=== PATIENT | male | born 1940 | race Caucasian/White ===

== ENCOUNTER → 2016-06-16 | Outpatient (CLI) | payer OTHER, BC ==
[~2016-06-16] VITALS: Ht 167.6 cm; Wt 59.0 kg
[~2016-06-16] MED LIST: ALEVE220 MG PO; ALPHA LIPOIC A300 MG PO; ARNICA120 ML TP; ATIVAN0.5 MG PO; BAYER BACK & B1 EACH PO; CURCUMIN1 GM MC; FISH OIL 1,001000 M2 PO; FOLIC ACID 40400 MCG PO; HYDROCODONE-AP1 EAC6 PO; IBUPROFEN200 M1 PO; LEVOTHYROXIN0.025 MG PO; METOPROLOL SUCC50 MG PO; NORVASC5 MG PO; PREDNISONE 20 M20 MG PO; PRILOSEC 10MG C10 MG PO; SERTRALINE HCL25 M1 PO; VITAMIN B-12500 MCG PO; VITAMIN D1000 UNIT PO; VOLTAREN GEL 1100 G2 TOP
--- NOTE | ~2016-06-16 | CATHLAB ---
[facility] [place] [address] INVASIVE PROCEDURE REPORT Name: BALJIT CASILLAS MARIE Room #: REG CL [facility]#: [id number] Admission: 06/16/16 Attend Phys: Geo Bunn MD Discharge: Date of : 36 Date of Service: 06/16/16 0911 Report #: [id number] THIS REPORT FOR: //name// CC: Geo Oglesby DATE OF SERVICE: 06/16/2016 CARDIAC CATHETERIZATION REPORT INDICATION: Unstable angina. Full risks, benefits and alternatives of cardiac catheterization were explained to the patient. All questions were answered. Informed consent was obtained. A Barbeau test was performed on the right radial artery. The right wrist area was prepped and draped in a sterile manner. Lidocaine was given subcutaneously. A 5-Ugandan sheath was inserted into the right radial artery via modified Seldinger technique. Nitroglycerin and verapamil was given through the sheath. 4000 units of heparin was given through a peripheral IV. CORONARY ANATOMY: The left main artery is a large caliber vessel, with no flow-limiting lesions. The LAD is a moderate-sized caliber vessel, tortuous as it travels down the anterior wall and wraps around the apex. There are no flow-limiting lesions in the LAD. There is some mild plaquing in the proximal segment of the LAD, less than 20%. The first diagonal artery has a mild blockage in the proximal segment, 20%. There is a ramus artery present, of moderate-size caliber. There are no flow-limiting lesions in the ramus artery. The left circumflex artery gives off one obtuse marginal artery. There is only mild plaquing in the proximal segment of the left circumflex artery, less than 20%. The RCA is a codominant vessel supplying a PDA. There is only mild plaquing in the mid segment of the RCA, less than 20%. A left ventriculogram was performed, revealing normal LV systolic function, ejection fraction of 60%. The LVEDP is 17 mmHg. There is no gradient across the outflow tract. At the end of the procedure, the sheath was removed and a Vasc band was applied for hemostasis. [facility] [address] [place] [address] INVASIVE PROCEDURE REPORT Name: BALJIT CASILLAS MARIE Room #: REG CL [facility]#: [id number] Admission: 06/16/16 Attend Phys: Geo Bunn MD Discharge: Date of : 36 Date of Service: 06/16/16910 Report #: [id number] IMPRESSION: 1. Mild, nonobstructive coronary artery disease. 2. Normal left ventricular systolic function. 3. Recommend medical therapy. <ELECTRONICALLY SIGNED> By: Geo Bunn MD 06/17/16 0756 0943 Geo Bunn MD /juan m
--- NOTE | ~2016-06-16 | EKG ---
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 06/16/1612 0731 0 Jason Richards MD, FACC /EPI
[2016-06-16 07:24] VITALS: BP 171/70
[2016-06-16 07:27] LABS: HEMATOCRIT 46.4 % (42.0-52.0); HEMOGLOBIN 15.6 gm/dL (14.0-18.0); MCHC 33.6 % (28.0-37.0); MCV 92.4 fL (80.0-100.0); RBC 5.02 mil/uL (4.50-6.00); RDW 13.3 % (10.5-14.5); WBC 11.2 thou/uL (4.0-11.0)
[2016-06-16 07:39] LABS: ANION GAP 7 mmol/L (7-16); BUN 20 mg/dL (7-18); CALCIUM 8.5 mg/dL (8.5-10.1); CHLORIDE 102 mmol/L (98-107); CO2 31 mmol/L (21-32); GLUCOSE 102 mg/dL (70-99); POTASSIUM 3.5 mmol/L (3.5-5.1); SODIUM 140 mmol/L (136-145)
[2016-06-16 07:44] LABS: CHOLESTEROL 254 mg/dL (<200); HDL CHOLESTEROL 110 mg/dL (>40); LDL CHOLESTEROL 124 mg/dL (<100); TC:HDL 2.3 Ratio (Not establshd); TRIGLYCERIDE 101 mg/dL (<150); VLDL 20 mg/dL (<40)
== END | disposition home or self-care (01) ==
LOC: CATH 06:54
PROVIDERS: Internal Medicine Cardiovascular Disease
DX: I25.10 Atherosclerotic heart disease of native coronary artery without angina pectoris (principal)

== ENCOUNTER → 2016-09-02 | Outpatient (CLI) | payer OTHER, BC | LOC: CAT 09:00 | DX: G44.319 Acute post-traumatic headache, not intractable (principal) ==

== ENCOUNTER → 2019-04-14 | Outpatient (CLI) | payer OTHER, BC ==
[~2019-04-14] VITALS: Ht 170.2 cm; Wt 56.7 kg
[~2019-04-14] MED LIST changes: +ADVIL200 M1 PO; +ALEVE PM CAPLE1 EACH PO; +ASPIRIN325 PO; +COREG6.25 MG PO; +LORAZEPAM 1 MG T1 MG PO; +NORVASC5 M1 PO; +ZESTRIL40 MG PO; +ZOLOFT50 M1 PO
[2019-04-14 07:13] LABS: HEMATOCRIT 47.4 % (42.0-52.0); HEMOGLOBIN 15.8 gm/dL (14.0-18.0); MCH 32.1 pg (26.0-34.0); MCHC 33.3 g/dL (28.0-37.0); MCV 96.5 fL (80.0-100.0); PLATELET COUNT 301 thou/uL (150-400); RBC 4.91 mil/uL (4.50-6.00); RDW 13.2 % (10.5-14.5); WBC 7.5 thou/uL (4.0-11.0)
[2019-04-14 07:18] VITALS: BP 160/70
[2019-04-14 07:22] LABS: CALCIUM 9.5 mg/dL (8.5-10.1); CREATININE 1.3 mg/dL (0.7-1.3); POTASSIUM 3.7 mmol/L (3.5-5.1)
[2019-04-14 07:25] LABS: APTT 25.5 Seconds (24.5-32.8); PROTIME 9.9 Seconds (9.3-11.4)
[2019-04-14 07:28] LABS: TOTAL BILIRUBIN 0.5 mg/dL (<0.1-1.0); TOTAL PROTEIN 7.3 g/dL (6.4-8.2)
[2019-04-14 08:14] LABS: ABSOLUTE NEUTROPHILS 4.6 thou/uL (1.4-8.2); ANISOCYTOSIS 1+
--- NOTE | 2019-04-18 14:00 | P ---
[facility] [place] [address] PROCEDURE REPORT Name: CASILLASBALJIT MARIE Room #: REG OANH Nikole#: [id number] Admission: 04/14/19 Attend Phys: Suresh Inman MD Discharge: Date of : 36 Report #: [id number] THIS REPORT FOR: //name// CC: Suresh Oglesby EP STUDY PREOPERATIVE DIAGNOSES: 1. Possible syncope. 2. Vopbv-Loiyccclo-Wwmxz, EKG pattern. POSTOPERATIVE DIAGNOSES: 1. Possible syncope. 2. Jgjpw-Hmqrgwenf-Ogjqa, EKG pattern. HISTORY OF PRESENT ILLNESS: The patient is an 78-year-old male who recently had a fall at home while using the bathroom in the middle of the night. It is unclear if he had a syncopal episode. He had a normal echo and stress test. He has evidence of manifest preexcitation on an EKG. He wore court recording monitor, which showed some short runs of SVT, lasting a few seconds. He had some short runs of wide complex tachycardia, which appears to be possibly SVT with possibly atrial tachycardia with preexcitation. He is here for diagnostic EP study and possible ablation. ANESTHESIA: The patient underwent MAC anesthesia with no anesthesia related complications. DESCRIPTION OF PROCEDURE: The patient underwent informed consent. We discussed the details of the procedure including the risks, which include but not limited to bleeding, vascular damage, cardiac perforation, stroke, ND as well as damage to tanana conduction system requiring permanent pacemaker. The patient was brought to the EP laboratory in a fasting and sedated state and prepped and draped in a sterile fashion. I obtained access to the femoral veins x 4. In the right femoral vein, I placed an 8-inch 6-Greenlandic short sheath and in the left femoral vein, I placed a 7-inch 6-Greenlandic short sheath. Next, I attempted to advance my decapolar catheter into the heart and there was a lot of tortuosity going from the left groin. I therefore obtained access to the right femoral vein third time and placed a short sheath here. This allowed me to advance the decapolar catheter more easily. I was able to get the decapolar catheter deep into the coronary sinus and then I placed 3 quadripolar catheters at the HRA, His and RV positions. Next, the basic EP study was performed. At baseline, the patient was in sinus rhythm, sinus cycle length of 1080 milliseconds, WI interval 120 milliseconds, QRS duration 158 milliseconds with evidence of preexcitation and a preexisting right bundle branch block. His QT interval was 470 milliseconds, AH interval was 96 milliseconds, and his HV [facility] [address] [place] [address] PROCEDURE REPORT Name: BALJIT CAISLLAS Room #: [id number] Admission: 04/14/19 Attend Phys: Suresh Inman MD Discharge: Date of : 36 Report #: [id number] interval was negative 26 milliseconds due to the manifest preexcitation. When I paced the atrium, his preexcitation showed a positive delta wave in V1 and positive concordance in the precordial leads. His delta wave was negative in leads II, III and aVF and positive in leads I. Again, he does have that right bundle branch block morphology at baseline. This morphology was suggestive of a left-sided pathway, likely posterior in nature. With atrial pacing, the accessory pathway would block antegrade at 660 milliseconds. This resulted in normalization of the HV interval at 45 milliseconds and a persistence of that right bundle branch block and narrowing of the QRS complex. Next, single atrial extrastimuli were delivered and accessory pathway effective refractory period was 620 milliseconds at a [address] cycle length. Next, ventricular pacing was performed and VA block was noted at 560 milliseconds. VA ERP was noted at 460 milliseconds at [address] cycle length. VA conduction was both midline and decremental. Next, isoproterenol infusion was initiated at 2 mcg per minute. This did result in improvement in the accessory pathway conduction. The accessory pathway block was now 490 milliseconds block via the AV node was now 330 milliseconds. Accessory pathway effective refractory period was 380 milliseconds at a [address] cycle length. VA conduction was improved as well. VA block was noted at 390 milliseconds and again was both midline and decremental. I performed aggressive atrial pacing and ventricular pacing and I could not induce any supraventricular tachycardia. Next, isoproterenol infusion was increased to 4 mcg per minute. Accessory pathway block was now noted at 360 milliseconds and AV ene block was noted at 270 milliseconds. The accessory pathway effective refractory period was now 290 milliseconds at a [address] cycle length. VA block was noted at 330 milliseconds. VA ERP was noted at 260 milliseconds at a [address] cycle length and again VA conduction was both midline and decremental. There was never any change in the VA conduction and always appeared to be earliest at the His. At this point, despite aggressive pacing maneuvers, we could not induce any supraventricular tachycardia. There was no suggestion of a slow pathway to suggest AVNRT and there was no evidence of pathway mediated tachycardia. I turned off isoproterenol. I then gave adenosine while watching antegrade conduction and this clearly showed that there was loss of AV conduction and there was clearly a block via the AV node and there was complete preexcitation pattern suggesting that we are now conducting slowly down the accessory pathway. I then repeated administration of adenosine first at 6 mg followed by 12 mg, but this time, I paced the ventricle. Prior to the administration of adenosine, VA conduction was again midline. After adenosine took effect, there was loss of VA conduction completely. There was no evidence of VA conduction via an accessory pathway. Isoproterenol infusion was again initiated at 2 mcg per minute and aggressive atrial and ventricular pacing was performed and no SVT was induced. At this point, it looks like we have a poorly conducting antegrade. At this point, it appears that we have an accessory pathway with only antegrade conduction. There is no evidence of retrograde conduction. Furthermore, this pathway appears to have poor antegrade conducting features making this low risk accessory pathway. [facility] [address] [place] [address] PROCEDURE REPORT Name: BALJIT CASILLAS MARIE Room #: REG Tevin Busch#: [id number] Admission: 04/14/19 Attend Phys: Suresh Inman MD Discharge: Date of : 36 Report #: [id number] As such, no ablation was performed of this low risk pathway. As such, all catheters and sheaths were pulled. Hemostasis was obtained and the patient awoke neurologically and hemodynamically intact. No complications and no significant bleeding. CONCLUSIONS: 1. 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 There is no evidence of retrograde conduction via this pathway. I do not believe this pathway can result in AVRT. I also do not believe that this pathway has any high risk features for antegrade conducting arrhythmias as well. 2. Normal SA ene function. 3. Normal AV ene function. 4. No other inducible arrhythmias on or off isoproterenol. PLAN: I believe that his recent fall versus syncope is not related to this accessory pathway. We will continue with current medical therapy. <ELECTRONICALLY SIGNED> By: Suresh Inman MD 04/18/19 1400 1125 1305 Suresh Inman MD /nt
== END | disposition home or self-care (01) ==
LOC: CATH 06:30
PROVIDERS: Internal Medicine Cardiovascular Disease
DX: I45.6 Pre-excitation syndrome (principal); I10 Essential (primary) hypertension; E78.5 Hyperlipidemia, unspecified; K21.9 Gastro-esophageal reflux disease without esophagitis; E03.9 Hypothyroidism, unspecified; I25.10 Atherosclerotic heart disease of native coronary artery without angina pectoris; Z98.890 Other specified postprocedural states; Z91.041 Radiographic dye allergy status; Z87.891 Personal history of nicotine dependence; Z88.8 Allergy status to other drugs, medicaments and biological substances; Z79.899 Other long term (current) drug therapy; Z79.01 Long term (current) use of anticoagulants
CPT/HCPCS: 62110; 62900; 70005

== ENCOUNTER → 2019-08-02 | Outpatient (CLI) | payer OTHER, BC | LOC: SJCVC 13:47 | DX: I45.10 Unspecified right bundle-branch block (principal); R94.31 Abnormal electrocardiogram [ECG] [EKG]; I45.6 Pre-excitation syndrome; I25.10 Atherosclerotic heart disease of native coronary artery without angina pectoris; I10 Essential (primary) hypertension; E78.5 Hyperlipidemia, unspecified; E78.00 Pure hypercholesterolemia, unspecified; K21.9 Gastro-esophageal reflux disease without esophagitis; E03.9 Hypothyroidism, unspecified; Z82.49 Family history of ischemic heart disease and other diseases of the circulatory system; Z87.891 Personal history of nicotine dependence; Z79.899 Other long term (current) drug therapy ==

== ENCOUNTER → 2019-09-30 | Outpatient (CLI) | payer OTHER, BC | LOC: SJCVC 09:29 | DX: I10 Essential (primary) hypertension (principal); I25.10 Atherosclerotic heart disease of native coronary artery without angina pectoris; R55 Syncope and collapse; I45.6 Pre-excitation syndrome; E78.00 Pure hypercholesterolemia, unspecified; K21.9 Gastro-esophageal reflux disease without esophagitis; Z79.82 Long term (current) use of aspirin; Z79.899 Other long term (current) drug therapy; Z82.49 Family history of ischemic heart disease and other diseases of the circulatory system; Z87.891 Personal history of nicotine dependence ==

== ENCOUNTER → 2020-04-02 | Outpatient (CLI) | payer OTHER, BC | LOC: SJCVC 11:56 | PROVIDERS: ATTEND Internal Medicine Cardiovascular Disease | DX: R94.31 Abnormal electrocardiogram [ECG] [EKG] (principal); I45.10 Unspecified right bundle-branch block; R00.1 Bradycardia, unspecified; I25.10 Atherosclerotic heart disease of native coronary artery without angina pectoris; I10 Essential (primary) hypertension; I47.1 Supraventricular tachycardia; R55 Syncope and collapse; Z79.899 Other long term (current) drug therapy; Z87.891 Personal history of nicotine dependence ==

== ENCOUNTER 2020-05-31 09:58 | Emergency (ER) | payer OTHER, BC ==
[~2020-05-31] VITALS: Ht 170.2 cm; Wt 60.3 kg
[2020-05-31] MEDS ORDERED: LIPITOR40 MG PO (10:21)
[2020-05-31] MEDS ORDERED: ASA81BEC PO (10:21)
[2020-05-31] MEDS ORDERED: TESSALON PERLE100 M1 PO (10:21)
[2020-05-31] MEDS ORDERED: TOPROL XL50 MG PO (10:22)
[2020-05-31] MEDS ORDERED: TRAZODONE HCL50 MG PO (10:23)
[2020-05-31 11:25] LABS: ABSOLUTE NEUTROPHILS 6.3 thou/uL (1.4-8.2); BASOPHILS 0.5 % (0.0-2.0); EOSINOPHILS 2.8 % (0.0-3.0); HEMATOCRIT 42.2 % (42.0-52.0); LYMPHOCYTES 13.9 % (24.0-44.0); MCH 31.9 pg (26.0-34.0); MCHC 33.3 g/dL (28.0-37.0); MCV 95.9 fL (80.0-100.0); MONOCYTES 9.1 % (1.0-8.0); PLATELET COUNT 328 thou/uL (150-400); POLYS 73.7 % (36.0-66.0); RDW 13.3 % (10.5-14.5); WBC 8.6 thou/uL (4.0-11.0)
[2020-05-31 11:37] LABS: APTT 23.4 Seconds (24.5-32.8); PROTIME 10.5 Seconds (9.3-11.4)
[2020-05-31 11:38] LABS: ANION GAP 5 mmol/L (7-16); BUN 28 mg/dL (7-18); CALCIUM 8.8 mg/dL (8.5-10.1); CHLORIDE 107 mmol/L (98-107); CO2 26 mmol/L (21-32); CREATININE 1.3 mg/dL (0.7-1.3); GLUCOSE 106 mg/dL (74-106); POTASSIUM 4.2 mmol/L (3.5-5.1); SODIUM 138 mmol/L (136-145)
[2020-05-31 11:48] LABS: ALBUMIN 3.2 g/dL (3.4-5.0); SGOT 32 U/L (15-37); SGPT 54 U/L (16-63); TOTAL BILIRUBIN 0.5 mg/dL (0.2-1.0); TOTAL PROTEIN 6.4 g/dL (6.4-8.2); TROPONIN-I <0.06 ng/mL (<0.06)
[2020-05-31 12:02] LABS: URINE BILIRUBIN NEGATIVE (Negative); URINE BLOOD 1+ (Negative); URINE CLARITY SL CLOUDY; URINE COLOR YELLOW; URINE GLUCOSE-RANDOM* NEGATIVE (Negative); URINE KETONES NEGATIVE (Negative); URINE PROTEIN (DIPSTICK) 2+ (Negative); URINE SPECIFIC GRAVITY 1.025 (1.005-1.035)
[2020-05-31 12:10] LABS: URINE LEUKOCYTES-REFLEX 2+ (Negative); URINE NITRITE-REFLEX POSITIVE (Negative)
[2020-05-31 12:11] LABS: BACTERIA-REFLEX >30 Many /HPF (None Seen); CASTS None Seen /LPF (None Seen); CRYSTALS None Seen /LPF (None Seen); SQUAMOUS 0-3 Few /LPF (0-3); URINE RBC 0-2 Rare /HPF (0-2); URINE WBC-REFLEX >25 Many /HPF (0-5)
[2020-05-31] MEDS ORDERED: LEVOFLOXACIN750 MG PO (14:00)
[2020-05-31 14:10] VITALS: BP 173/67
--- NOTE | 2020-06-01 15:10 | EKG ---
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 : 1940 Requested By: Oli Murray Order Number: [id number] MD: Jason Richards Measurements Intervals [place] Rate: 58 P: 103 [place]: 146 QRS: -37 QRSD: 135 T: 70 QT: 461 QTc: 453 Interpretive Statements Sinus rhythm Vent pre-excitat'n(WPW), left acces'y pathway Compared to ECG 06/16/2016 07:31:06 Preexcitation is now present Electronically Signed On 06-01-2020 15:10:45 [employer] SUPERINTENDENT by Jason Richards [email or web address] <ELECTRONICALLY SIGNED> By: Jason Richards MD, [facility] 06/01/20 1510 110 00 Jason Richards MD, FAC /EPI
== END 2020-05-31 14:10 | disposition home or self-care (01) ==
LOC: ER 09:58
PROVIDERS: Emergency Medicine
DX: E86.0 Dehydration (principal); J18.9 Pneumonia, unspecified organism; N39.0 Urinary tract infection, site not specified; I10 Essential (primary) hypertension; K21.9 Gastro-esophageal reflux disease without esophagitis; I25.10 Atherosclerotic heart disease of native coronary artery without angina pectoris; E03.9 Hypothyroidism, unspecified; Z79.899 Other long term (current) drug therapy; Z91.041 Radiographic dye allergy status; Z87.891 Personal history of nicotine dependence; Z20.828 Contact with and (suspected) exposure to other viral communicable diseases

== ENCOUNTER → 2020-10-05 | Outpatient (CLI) | payer OTHER, BC ==
[~2020-10-05] MED LIST changes: +ASA81BEC PO; +LEVOFLOXACIN750 MG PO; +LIPITOR40 MG PO; +TESSALON PERLE100 M1 PO; +TOPROL XL50 MG PO; +TRAZODONE HCL50 MG PO
== END ==
LOC: SJCVCIMAG 08:57
PROVIDERS: ATTEND Internal Medicine Cardiovascular Disease
DX: I08.3 Combined rheumatic disorders of mitral, aortic and tricuspid valves (principal); I27.20 Pulmonary hypertension, unspecified; R94.31 Abnormal electrocardiogram [ECG] [EKG]; I25.10 Atherosclerotic heart disease of native coronary artery without angina pectoris; I10 Essential (primary) hypertension; E78.00 Pure hypercholesterolemia, unspecified; R60.9 Edema, unspecified; K21.9 Gastro-esophageal reflux disease without esophagitis; E03.9 Hypothyroidism, unspecified; M19.90 Unspecified osteoarthritis, unspecified site; G89.29 Other chronic pain; Z88.8 Allergy status to other drugs, medicaments and biological substances; Z98.890 Other specified postprocedural states; Z79.82 Long term (current) use of aspirin; Z79.899 Other long term (current) drug therapy; Z87.891 Personal history of nicotine dependence; Z82.49 Family history of ischemic heart disease and other diseases of the circulatory system

== ENCOUNTER → 2021-04-08 | Outpatient (CLI) | payer OTHER, BC | LOC: SJCVC 14:03 | PROVIDERS: ATTEND Internal Medicine Cardiovascular Disease | DX: R94.31 Abnormal electrocardiogram [ECG] [EKG] (principal); R00.1 Bradycardia, unspecified; I10 Essential (primary) hypertension; I25.10 Atherosclerotic heart disease of native coronary artery without angina pectoris; E78.00 Pure hypercholesterolemia, unspecified; R60.9 Edema, unspecified; K21.9 Gastro-esophageal reflux disease without esophagitis; E03.9 Hypothyroidism, unspecified; Z82.49 Family history of ischemic heart disease and other diseases of the circulatory system; Z88.8 Allergy status to other drugs, medicaments and biological substances; Z79.82 Long term (current) use of aspirin; Z79.899 Other long term (current) drug therapy; Z87.891 Personal history of nicotine dependence ==